=== PATIENT | female | born 2000 | race Two or more races ===

== ENCOUNTER 2023-03-21 11:57 | Emergency (ER) | payer OTHER ==
[2023-03-21 12:21] LABS: BASOPHILS % (AUTO) 0.3 %; EOSINOPHILS % (AUTO) 0.1 %; HCT - HEMATOCRIT 38.2 % (37.0-47.0); HGB - HEMOGLOBIN 12.6 g/dL (12.0-16.0); LYMPHOCYTES # (AUTO) 1.6 10^3/uL (1.5-3.5); LYMPHOCYTES % (AUTO) 13.7 %; MEAN CORPUSCULAR HEMOGLOBIN 28.7 pg (27.0-31.0); MONOCYTES # (AUTO) 0.9 10^3/uL (0.0-1.0); MONOCYTES % (AUTO) 7.6 %; NEUTROPHILS # (AUTO) 9.1 10^3/uL (1.5-6.6); PLT - PLATELET COUNT 427 10^3/uL (130-450); RED BLOOD COUNT 4.39 10^6/uL (4.20-5.40); RED CELL DISTRIBUTION WIDTH 13.1 % (12.0-15.0); WHITE BLOOD COUNT 11.6 x10^3/uL (4.8-10.8)
[2023-03-21 12:34] LABS: ALBUMIN/GLOBULIN RATIO 0.9 (1.0-2.2); CALCIUM 9.1 mg/dL (8.5-10.3); CREATININE 0.7 mg/dL (0.4-1.0); POTASSIUM 3.9 mmol/L (3.5-5.0); TOTAL PROTEIN 8.7 g/dL (6.7-8.2)
[2023-03-21] MEDS ORDERED: ONDANSETRON 4 MG/2 ML VIAL IVP STA (15:19)
[2023-03-21] MEDS ORDERED: SODIUM CHLORIDE 0.9% 1,000 ML IV STA (15:19)
--- NOTE | 2023-03-21 15:27 | ED Physician Documentation ---
PD HPI ABD PAIN - Stated complaint Stated Complaint: NAUSEA/ABD PX - Chief complaint Chief Complaint: Abd Pain - History obtained from History obtained from: Patient - Additional information Additional information: Patient is a 22-year-old female presenting for evaluation of abdominal pain with associated nausea and vomiting starting yesterday. Patient reports having multiple episodes of emesis yesterday consisting of liquids. No blood.She reported a fever of 102 last night. She woke up this morning still feeling nauseous with her last episode of emesis around 10:00 this morning. She reports pain in the abdomen. She did have some vaginal bleeding yesterday But it stopped today. No discharge or concerns for STI. Patient is unsure if she is . She does use the NuvaRing and removed it on Monday and this would be the normal time for her period.Denies prior abdominal surgeries. No sick contacts. Review of Systems Constitutional: reports: Fever Cardiac: denies: Chest pain / pressure Respiratory: denies: Dyspnea GI: reports: Abdominal Pain, Nausea, Vomiting : reports: Vaginal bleeding. denies: Dysuria, Hematuria Neurologic: denies: Headache PD PAST MEDICAL HISTORY - Present Medications Home Medications: Ambulatory Orders Medication Instructions Recorded Confirmed Cefpodoxime Proxetil [Vantin] 100 mg PO Q12H 10 Days #20 tablet 03/21/23 Ondansetron Odt [Zofran] 4 mg TL Q6H PRN #10 tablet 03/21/23 - Allergies Allergies/Adverse Reactions: Allergies Allergy/AdvReac Type Severity Reaction Status Date / Time No Known Drug Allergies Allergy Verified 03/21/23 12:05 PD ED PE NORMAL - General General: Alert and oriented X 3, No acute distress, Well developed/nourished - HEENT HEENT: Atraumatic - Neck Neck: Supple, no meningeal sign - Cardiac Cardiac: RRR, No murmur - Respiratory Respiratory: No respiratory distress, Clear bilaterally - Abdomen Abdomen: Normal bowel sounds, Soft, Non distended, Other (Right-sided abdominal tenderness to palpation) - Back Back: Other (R CVA tenderness) - Derm Derm: Warm and dry - Neuro Neuro: Normal speech Results - Vitals Vitals: Vital Signs - 24 hr 03/21/23 03/21/23 03/21/23 12:05 15:23 16:15 Temperature 36.5 C Heart Rate 100 97 90 Respiratory 16 16 16 Rate Blood Pressure 138/77 H 135/77 H 135/76 H O2 Saturation 99 100 100 03/21/23 17:43 Temperature 36.7 C Heart Rate 89 Respiratory 21 Rate Blood Pressure 124/76 O2 Saturation 99 Oxygen O2 Source Room air - Labs Labs: Laboratory Tests 03/21/23 03/21/23 03/21/23 12:15 12:15 15:26 WBC 11.6 H RBC 4.39 Hgb 12.6 Hct 38.2 MCV 87.0 MCH 28.7 MCHC 33.0 RDW 13.1 Plt Count 427 MPV 10.0 Neut # (Auto) 9.1 H Lymph # (Auto) 1.6 [place] # (Auto) 0.9 Eos # (Auto) 0.0 Baso # (Auto) 0.0 Absolute Nucleated RBC 0.00 Nucleated RBC % 0.0 Sodium 137 Potassium 3.9 Chloride 103 Carbon Dioxide 26 Anion Gap 8.0 BUN 10 Creatinine 0.7 Estimated GFR (MDRD) 107 Glucose 100 Calcium 9.1 Total Bilirubin 1.0 AST 19 ALT 15 Alkaline Phosphatase 68 Total Protein 8.7 H Albumin 4.0 Globulin 4.7 H Albumin/Globulin Ratio 0.9 L Lipase 35 Urine Color YELLOW Urine Clarity CLOUDY Urine pH 6.5 Ur Specific [place] 1.020 Urine Protein 30 H Urine Glucose (UA) NEGATIVE Urine Ketones NEGATIVE Urine Occult Blood MODERATE H Urine Nitrite POSITIVE H Urine Bilirubin NEGATIVE Urine Urobilinogen 1 (NORMAL) Ur Leukocyte Esterase LARGE H Urine RBC 11-25 H Urine WBC >25 H Urine WBC Clumps PRESENT Ur Squamous Epith Cells RARE Squamous Urine Bacteria Many H Ur Microscopic Review INDICATED Urine Culture Comments INDICATED Urine HCG, Qual NEGATIVE PD Medical Decision Making - ED course Complexity details: reviewed results, re-evaluated patient, d/w patient ED course: Pt with abdominal pains, vomiting, fever. VSS. Mild tenderness noted on abdominal exam but no peritoneal signs. Labs reviewed. WBC 11.6 and U/A concerning for infection. CT obtained given abdominal tenderness which I reviewed. R sided pyelonephritis. Pt given IV rocephin. She is feeling better here with zofran and tolerating PO. Does not appear septic and appears appropriate for trial of outpatient treatment. Pt counseled on treatment course and strict return precautions for any worsening symptoms. Departure - Departure Disposition: 01 Home, Self Care Clinical Impression: Pyelonephritis Instructions: ED Kidney Infec Female Follow-Up: [facility] [Provider Group] Prescriptions: Cefpodoxime Proxetil [Vantin] 100 mg PO Q12H 10 Days #20 tablet Ondansetron Odt [Zofran] 4 mg TL Q6H PRN #10 tablet PRN Reason: Nausea / Vomiting Comments: Your testing today shows that you have an infection that is spread to your right kidney. We have given you a dose of an IV antibiotic. I also sent a prescription for an oral antibiotic as well as an antinausea medication to [facility] in [place]. Please make sure to complete the course of the antibiotic. It is important to stay hydrated. If you develop any worsening symptoms such as trouble taking your antibiotic, continued fevers, worsening pain or any new concerns please return to the emergency department. Forms: Activity restrictions Discharge Date/Time: 03/21/23 17:43
[2023-03-21 15:37] LABS: BILIRUBIN,URINE NEGATIVE (NEGATIVE); GLUCOSE, URINE (UA) NEGATIVE (NEGATIVE); KETONES,URINE (UA) NEGATIVE (NEGATIVE); LEUKOCYTE ESTERASE, URINE LARGE (NEGATIVE); NITRITE,URINE POSITIVE (NEGATIVE); OCCULT BLOOD,URINE MODERATE (NEGATIVE); PH,URINE 6.5 PH (5.0-7.5); PROTEIN,URINE 30 mg/dL (NEGATIVE); UROBILINOGEN,URINE 1 (NORMAL) E.U./dL (NORMAL)
[2023-03-21 15:45] LABS: CLARITY,URINE CLOUDY (CLEAR)
[2023-03-21 15:46] LABS: HCG UR QUAL NEGATIVE
[2023-03-21 15:47] LABS: BACTERIA,URINE Many /HPF (None Seen); SQUAMOUS EPITHELIAL CELL,UR RARE Squamous (<= Few); WBC CLUMPS,URINE PRESENT; WBC,URINE >25 /HPF (0-5)
[2023-03-21] MEDS ORDERED: cefTRIAXone 1 GM VIAL IVP STA (15:53)
[2023-03-21] MEDS ORDERED: cefTRIAXone 1 GM in SODIUM CHLORIDE 0.9% MINIBAG 100 ML IV STA (15:59)
[2023-03-21] MEDS ORDERED: iohexoL-300 100 ML VIAL ONE (16:00)
[2023-03-21] MEDS ORDERED: cefTRIAXone 1 GM VIAL ONE (16:11)
[2023-03-21] MEDS ORDERED: iohexoL-300 100 ML VIAL IVP ONE (16:43)
--- NOTE | 2023-03-21 17:07 | CT Report ---
PROCEDURE: ABDOMEN/PELVIS W INDICATIONS: abd pain/vomiting CONTRAST: 100mL Omni 300 TECHNIQUE: After the administration of intravenous contrast, 5 mm thick sections acquired from the diaphragms to the symphysis. 5 mm thick coronal and sagittal reformats were acquired. For radiation dose reducti on, the following was used: automated exposure control, adjustment of mA and/or kV according to jose ent size. COMPARISON: None FINDINGS: Image quality: Excellent. Lung bases and heart: Unremarkable. Liver: No solid mass. Gallbladder and biliary tree: No radiopaque stones or wall thickening. No biliary dilation. Spleen: No splenomegaly. Pancreas: No pancreatic ductal dilation. Adrenals: No adrenal nodule. Kidneys and ureters: There is mild right-sided hydronephrosis, with urothelial wall thickening. Symme tric enhancement phase of the kidneys, with patchy, wedge-shaped hypoattenuation of the right renal c ortex. No abscess. Nonobstructing right-sided stones measuring less than 4 mm. Bowel and peritoneum: No bowel distension. No pathologic free fluid. Lymph nodes: No central or retroperitoneal adenopathy. Vessels: No infrarenal aortic aneurysm. PELVIS Reproductive organs: Unremarkable. Bladder: No abnormal wall thickening, accounting for underdistension. Pelvic lymph nodes: No pelvic adenopathy by size criteria. Bones: No aggressive osseous abnormality. Other: No significant ventral or inguinal hernia. IMPRESSION: Right-sided pyelonephritis, with associated mild hydronephrosis, likely related to bacteriostatic enz ymes. No abscess. A pair of sub-4 mm nonobstructing right-sided nephrolithiasis. Reviewed by: Peter Erwin on 03/21/2023 5:05 PM PDT Approved by: Peter Erwin on 03/21/2023 5:05 PM PDT Station ID: [id number]
[2023-03-21 17:46] VITALS: BP 124/76
--- NOTE | 2023-03-22 11:18 | ED Physician Documentation ---
ED Addendum - Addendum Addendum: 03/22/23 11:17 I was asked by our [employer] to electronically prescribe the Vantin and Zofran that had been prescribed by the previous provider which appears to not have been electronically sent. These were sent to the [facility] in [place].
== END 2023-03-21 17:43 | disposition home or self-care (01) ==
LOC: ED 11:57
DX: N12 Tubulo-interstitial nephritis, not specified as acute or chronic (principal)
CPT/HCPCS: 36415; 74177; 80053; 81001; 81025; 83690; 85025; 87077; 87086; 87181; 96365; 96375; 99284; Q9967; 81003

== ENCOUNTER 2023-05-03 14:12 | Emergency (ER) | payer OTHER ==
[2023-05-03 14:38] LABS: BASOPHILS % (AUTO) 0.6 %; EOSINOPHILS # (AUTO) 0.2 10^3/uL (0.0-0.7); EOSINOPHILS % (AUTO) 4.6 %; HCT - HEMATOCRIT 35.2 % (37.0-47.0); HGB - HEMOGLOBIN 11.5 g/dL (12.0-16.0); LYMPHOCYTES # (AUTO) 1.4 10^3/uL (1.5-3.5); LYMPHOCYTES % (AUTO) 27.6 %; MEAN CORPUSCULAR HEMOGLOBIN 28.5 pg (27.0-31.0); MEAN CORPUSCULAR HGB CONC 32.7 g/dL (32.0-36.0); MEAN CORPUSCULAR VOLUME 87.3 fL (81.0-99.0); MEAN PLATELET VOLUME 10.2 fL (7.9-10.8); MONOCYTES # (AUTO) 0.4 10^3/uL (0.0-1.0); MONOCYTES % (AUTO) 7.2 %; NEUTROPHILS % (AUTO) 59.8 %; PLT - PLATELET COUNT 377 10^3/uL (130-450); RED BLOOD COUNT 4.03 10^6/uL (4.20-5.40); RED CELL DISTRIBUTION WIDTH 13.2 % (12.0-15.0)
--- NOTE | 2023-05-03 14:50 | ED Physician Documentation ---
PD HPI ABD PAIN - Stated complaint Stated Complaint: RT SIDE PX - Chief complaint Chief Complaint: Abd Pain - History obtained from History obtained from: Patient - History of Present Illness Timing - onset: How many days ago (5) Timing - duration: Days (5) Timing - details: Gradual onset Pain level max: 5 Pain level now: 5 Quality: Aching, Pain Location: Other (R flank) Associated symptoms: Nausea. No: Fever, Vomiting, Hematemesis, Diarrhea, Constipation, Melena, Hematochezia, Dysuria, Hematuria, Chest pain, Dizzy Recently seen: Not recently seen - Additional information Additional information: Patient is a 22-year-old female who presents to the emergency department for right flank pain. Recently treated for nephrolithiasis and pyelonephritis. She states she felt better after antibiotics but now the pain is returning. Does not have any urinary symptoms. No fevers. No chills. Nothing really makes it better or worse. No vaginal bleeding or discharge. Denies any possibility of . Review of Systems Constitutional: denies: Fever, Chills GI: denies: Vomiting PD PAST MEDICAL HISTORY - Past Medical History Cardiovascular: None Respiratory: None Neuro: None Endocrine/Autoimmune: None GI: None QUALITY COMPLIANCE CONSULTANT: None : None HEENT: None Psych: None Musculoskeletal: None Derm: None - Past Surgical History Past Surgical History: No - Present Medications Home Medications: Ambulatory Orders Medication Instructions Recorded Confirmed Cefpodoxime Proxetil [Vantin] 100 mg PO Q12H 10 Days #20 tablet 03/21/23 Ondansetron Odt [Zofran] 4 mg TL Q6H PRN #10 tablet 03/21/23 Cefpodoxime Proxetil [Vantin] 100 mg PO Q12H #14 tablet 05/03/23 HYDROcod/ACETAM 5/325 [[place] 5/325] 1 - 2 ea PO Q6H PRN #14 tablet 05/03/23 - Allergies Allergies/Adverse Reactions: Allergies Allergy/AdvReac Type Severity Reaction Status Date / Time No Known Drug Allergies Allergy Verified 03/21/23 12:05 - Social History Does the pt smoke?: No Smoking Status: Never smoker Does the pt drink ETOH?: No Does the pt have substance abuse?: No - Immunizations Immunizations are current?: Yes PD ED PE NORMAL - Vitals Vital signs reviewed: Yes - General General: Alert and oriented X 3, No acute distress - HEENT HEENT: PERRL - Cardiac Cardiac: RRR, No murmur - Respiratory Respiratory: Clear bilaterally - Abdomen Abdomen: Soft, Non tender, Non distended - Back Back: Other (mild R CVAT) - Derm Derm: Warm and dry, No rash - Extremities Extremities: No edema - Neuro Neuro: Alert and oriented X 3 - Psych Psych: Normal mood, Normal affect Results - Vitals Vitals: Vital Signs - 24 hr 05/03/23 05/03/23 14:15 17:57 Temperature 37.4 C Heart Rate 84 71 Respiratory 18 16 Rate Blood Pressure 116/61 121/76 O2 Saturation 97 100 Oxygen O2 Source Room air - Labs Labs: Laboratory Tests 05/03/23 05/03/23 05/03/23 14:33 14:33 14:53 WBC 5.0 RBC 4.03 L Hgb 11.5 L Hct 35.2 L MCV 87.3 MCH 28.5 MCHC 32.7 RDW 13.2 Plt Count 377 MPV 10.2 Neut # (Auto) 3.0 Lymph # (Auto) 1.4 L [place] # (Auto) 0.4 Eos # (Auto) 0.2 Baso # (Auto) 0.0 Absolute Nucleated RBC 0.00 Nucleated RBC % 0.0 Sodium 136 Potassium 3.6 Chloride 104 Carbon Dioxide 28 Anion Gap 4.0 L BUN 19 Creatinine 0.7 Estimated GFR (MDRD) 107 Glucose 113 H Calcium 9.5 Total Bilirubin 0.3 AST 13 ALT 10 Alkaline Phosphatase 72 Total Protein 7.6 Albumin 4.0 Globulin 3.6 Albumin/Globulin Ratio 1.1 Lipase 45 Urine Color YELLOW Urine Clarity CLOUDY Urine pH 8.0 H Ur Specific [place] 1.015 Urine Protein NEGATIVE Urine Glucose (UA) NEGATIVE Urine Ketones NEGATIVE Urine Occult Blood NEGATIVE Urine Nitrite NEGATIVE Urine Bilirubin NEGATIVE Urine Urobilinogen 0.2 (NORMAL) Ur Leukocyte Esterase TRACE H Urine RBC 0-5 Urine WBC 11-25 H Ur Squamous Epith Cells FEW Squamous Amorphous Sediment Marked Urine Bacteria Few Ur Microscopic Review INDICATED Urine Culture Comments INDICATED Urine HCG, Qual NEGATIVE - Rads (name of study) CT abd pelvis Relevant Findings:: Final report received, See rad report PD Medical Decision Making - ED course Complexity details: reviewed results, re-evaluated patient, considered differential, d/w patient ED course: No fever. No leukocytosis. No evidence of sepsis. Does have white blood cells and bacteria in her urine, given Rocephin and will place on antibiotics for this. Her CT scan shows probable obstruction at the UPJ. No visible stone. This appears worse than her CT scan a month ago. I discussed the case with Dr. Donahue, urology who recommends follow-up in clinic. [place]. Patient is well-appearing, nontoxic. Afebrile. Will prescribe pain medication for home. Patient counseled regarding signs and symptoms for which I believe and urgent re-evaluation would be necessary. Patient with good understanding of and agreement to plan and is comfortable going home at this time This document was made in part using voice recognition software. While efforts are made to proofread this document, sound alike and grammatical errors may occur. Departure - Departure Disposition: Home, Self Care Clinical Impression: UPJ (ureteropelvic junction) obstruction UTI (urinary tract infection) Qualifiers: Urinary tract infection type: acute cystitis Hematuria presence: without hematuria Qualified Code(s): N30.00 - Acute cystitis without hematuria Condition: Good Instructions: ED UTI Cystitis Female [facility] Perfecto Donahue MD [Provider Admit Priv/Credential] - Within 1 week Prescriptions: HYDROcod/ACETAM 5/325 [[place] 5/325] 1 - 2 ea PO Q6H PRN #14 tablet PRN Reason: Pain Cefpodoxime Proxetil [Vantin] 100 mg PO Q12H #14 tablet Comments: Your prescription was sent to [facility] in [place]. You can use them occasion as needed for pain. Please take all antibiotics until gone. As we discussed is important that you follow-up with urology for further evaluation of the right UPJ obstruction. I did speak with Dr. Godfrey callahan. I am prescribing a short course of narcotic pain medication for you. These are potentially dangerous and addictive medications that should be used carefully. These medications may constipate you. Take an jgpo-cax-cqqsfui stool softener (docusate) twice daily with plenty of water while taking these medications. If you go 24 hours without a bowel movement, take simi-nja-[id number] miralax, per package instructions. Do not drink or drive while taking these medications. If you received narcotic or sedating medications while in the emergency department, do not drive for 24 hours. Store this medication in a safe, secure place and out of reach of children. It is a violation of federal law to give or sell this medication to another person or to use in a manner other than prescribed. The ED will not refill narcotic prescriptions, including prescriptions lost or stolen. To dispose of unwanted medications: 1. [facility] at [address] in [place] has a medication drop box. They accept prescription medications (in pill form) Monday through Monday 9:00 a.m. to 5:00 p.m. 2. The [facility] accepts prescription medications (in pill form only) for disposal year round. Call for more information. 3. Contact the [facility] for the next [facility] sponsored prescription drug collection event. , [phone], or [phone]; EXAM: [id number] CT/ABPEW ([id number]) PROCEDURE: ABDOMEN/PELVIS W INDICATIONS: R flank pain CONTRAST: 100mL Omni 300 TECHNIQUE: After the administration of intravenous contrast, 5 mm thick sections acquired from the diaphragms to the symphysis. 5 mm thick coronal and sagittal reformats were acquired. For radiation dose reduction, the following was used: automated exposure control, adjustment of mA and/or kV according to patient size. COMPARISON: 03/21/2023 FINDINGS: Image quality: Excellent. Lung bases and heart: Unremarkable. Liver: No solid mass. Gallbladder and biliary tree: No radiopaque stones or wall thickening. No biliary dilation. Spleen: No splenomegaly. Pancreas: No pancreatic ductal dilation. Adrenals: No adrenal nodule. Kidneys and ureters: Slight interval increase in right hydronephrosis. There is a right extrarenal pelvis and probable right UPJ obstruction. There is moderate right hydronephrosis currently. The previous heterogeneous enhancement of the right kidney is improved. Bowel and peritoneum: No bowel distension. No pathologic free fluid. Lymph nodes: No central or retroperitoneal adenopathy. Vessels: No infrarenal aortic aneurysm. PELVIS Reproductive organs: Unremarkable. Bladder: No abnormal wall thickening, accounting for underdistension. Pelvic lymph nodes: No pelvic adenopathy by size criteria. Bones: No aggressive osseous abnormality. Other: No significant ventral or inguinal hernia. IMPRESSION: Interval progression of right hydronephrosis, now moderate. There is a right extrarenal pelvis. There is a probable right UPJ obstruction. Forms: PCP List Discharge Date/Time: 05/03/23 17:58
[2023-05-03 14:58] LABS: ALBUMIN/GLOBULIN RATIO 1.1 (1.0-2.2); BILIRUBIN,TOTAL 0.3 mg/dL (0.2-1.0); CALCIUM 9.5 mg/dL (8.5-10.3); CREATININE 0.7 mg/dL (0.6-1.3); POTASSIUM 3.6 mmol/L (3.5-4.5); TOTAL PROTEIN 7.6 g/dL (6.4-8.9)
[2023-05-03 15:08] LABS: BILIRUBIN,URINE NEGATIVE (NEGATIVE); GLUCOSE, URINE (UA) NEGATIVE (NEGATIVE); KETONES,URINE (UA) NEGATIVE (NEGATIVE); LEUKOCYTE ESTERASE, URINE TRACE (NEGATIVE); NITRITE,URINE NEGATIVE (NEGATIVE); OCCULT BLOOD,URINE NEGATIVE (NEGATIVE); PROTEIN,URINE NEGATIVE (NEGATIVE); UROBILINOGEN,URINE 0.2 (NORMAL) E.U./dL (NORMAL)
[2023-05-03 15:12] LABS: CLARITY,URINE CLOUDY (CLEAR); HCG UR QUAL NEGATIVE
[2023-05-03 15:37] LABS: AMORPHOUS SEDIMENT,UR Marked /LPF; BACTERIA,URINE Few /HPF (None Seen); RBC,URINE 0-5 /HPF (0-5); SQUAMOUS EPITHELIAL CELL,UR FEW Squamous (<= Few)
[2023-05-03] MEDS: iohexoL-300 100 ML VIAL IVP ONE (16:12)
--- NOTE | 2023-05-03 17:20 | CT Report ---
PROCEDURE: ABDOMEN/PELVIS W INDICATIONS: R flank pain CONTRAST: 100mL Omni 300 TECHNIQUE: After the administration of intravenous contrast, 5 mm thick sections acquired from the diaphragms to the symphysis. 5 mm thick coronal and sagittal reformats were acquired. For radiation dose reducti on, the following was used: automated exposure control, adjustment of mA and/or kV according to jose ent size. COMPARISON: 03/21/2023 FINDINGS: Image quality: Excellent. Lung bases and heart: Unremarkable. Liver: No solid mass. Gallbladder and biliary tree: No radiopaque stones or wall thickening. No biliary dilation. Spleen: No splenomegaly. Pancreas: No pancreatic ductal dilation. Adrenals: No adrenal nodule. Kidneys and ureters: Slight interval increase in right hydronephrosis. There is a right extrarenal pe lvis and probable right UPJ obstruction. There is moderate right hydronephrosis currently. The previo us heterogeneous enhancement of the right kidney is improved. Bowel and peritoneum: No bowel distension. No pathologic free fluid. Lymph nodes: No central or retroperitoneal adenopathy. Vessels: No infrarenal aortic aneurysm. PELVIS Reproductive organs: Unremarkable. Bladder: No abnormal wall thickening, accounting for underdistension. Pelvic lymph nodes: No pelvic adenopathy by size criteria. Bones: No aggressive osseous abnormality. Other: No significant ventral or inguinal hernia. IMPRESSION: Interval progression of right hydronephrosis, now moderate. There is a right extrarenal pelvis. There is a probable right UPJ obstruction. Reviewed by: Ashok Pebmerton MD on 05/03/2023 5:19 PM PDT Approved by: Ashok Pemberton MD on 05/03/2023 5:19 PM PDT Station ID: [id number]
[2023-05-03] MEDS: cefTRIAXone 1 GM VIAL IVP STA (17:38)
[2023-05-03 18:03] VITALS: BP 121/76; O2SAT 100
--- NOTE | 2023-05-05 11:28 | ED Physician Documentation ---
ED Addendum - Addendum Addendum: 05/05/23 11:28 CX reviewed, orlando gambino
== END 2023-05-03 17:58 | disposition home or self-care (01) ==
LOC: ED 14:12
DX: N13.1 Hydronephrosis with ureteral stricture, not elsewhere classified (principal); N30.00 Acute cystitis without hematuria
CPT/HCPCS: 36415; 80053; 81001; 81003; 81025; 83690; 85025; 87086; 87181; 96374; 99283

== ENCOUNTER 2023-05-10 08:00 | Outpatient (CLI) | payer OTHER ==
[2023-05-10 16:38] LABS: BILIRUBIN,URINE NEGATIVE (NEGATIVE); GLUCOSE, URINE (UA) NEGATIVE (NEGATIVE); KETONES,URINE (UA) NEGATIVE (NEGATIVE); LEUKOCYTE ESTERASE, URINE NEGATIVE (NEGATIVE); NITRITE,URINE NEGATIVE (NEGATIVE); OCCULT BLOOD,URINE NEGATIVE (NEGATIVE); PROTEIN,URINE NEGATIVE (NEGATIVE); UROBILINOGEN,URINE 0.2 (NORMAL) E.U./dL (NORMAL)
[2023-05-10 16:46] LABS: CLARITY,URINE CLEAR (CLEAR)
[2023-05-10 17:02] LABS: BACTERIA,URINE None Seen /HPF (None Seen); RBC,URINE None Seen /HPF (0-5); SQUAMOUS EPITHELIAL CELL,UR FEW Squamous (<= Few); WBC,URINE 0-3 /HPF (0-5)
== END 2023-05-10 23:59 | disposition home or self-care (01) ==
LOC: LAB 08:00
PROVIDERS: ATTEND Urology
DX: N39.0 Urinary tract infection, site not specified (principal)
CPT/HCPCS: 81001; 87086

== ENCOUNTER 2023-08-08 09:45 | Emergency (ER) | payer OTHER ==
[2023-08-08] MEDS ORDERED: SODIUM CHLORIDE 0.9% 1,000 ML IV STA (10:10)
[2023-08-08] MEDS ORDERED: ONDANSETRON 4 MG/2 ML VIAL IVP STA (10:10)
[2023-08-08 10:21] LABS: BASOPHILS % (AUTO) 0.2 %; EOSINOPHILS # (AUTO) 0.1 10^3/uL (0.0-0.7); EOSINOPHILS % (AUTO) 1.7 %; HCT - HEMATOCRIT 35.8 % (37.0-47.0); HGB - HEMOGLOBIN 11.9 g/dL (12.0-16.0); LYMPHOCYTES # (AUTO) 1.4 10^3/uL (1.5-3.5); LYMPHOCYTES % (AUTO) 17.4 %; MEAN CORPUSCULAR HEMOGLOBIN 28.7 pg (27.0-31.0); MEAN CORPUSCULAR HGB CONC 33.2 g/dL (32.0-36.0); MEAN CORPUSCULAR VOLUME 86.5 fL (81.0-99.0); MEAN PLATELET VOLUME 9.9 fL (7.9-10.8); MONOCYTES # (AUTO) 0.4 10^3/uL (0.0-1.0); MONOCYTES % (AUTO) 4.5 %; NEUTROPHILS # (AUTO) 6.2 10^3/uL (1.5-6.6); PLT - PLATELET COUNT 422 10^3/uL (130-450); RED BLOOD COUNT 4.14 10^6/uL (4.20-5.40); WHITE BLOOD COUNT 8.2 x10^3/uL (4.8-10.8)
[2023-08-08 10:36] LABS: ALBUMIN 4.1 g/dL (3.2-5.5); ALBUMIN/GLOBULIN RATIO 1.2 (1.0-2.2); BILIRUBIN,TOTAL 0.2 mg/dL (0.2-1.0); CALCIUM 9.3 mg/dL (8.5-10.3); CREATININE 0.6 mg/dL (0.6-1.3); POTASSIUM 3.3 mmol/L (3.5-4.5); TOTAL PROTEIN 7.5 g/dL (6.4-8.9)
[2023-08-08] MEDS ORDERED: HYDROmorphone 0.5 MG/0.5 ML SYRINGE IVP STA (11:02)
[2023-08-08] MEDS ORDERED: KETOROLAC 15 MG/ML VIAL IVP STA (11:02)
[2023-08-08 11:13] LABS: BILIRUBIN,URINE NEGATIVE (NEGATIVE); GLUCOSE, URINE (UA) NEGATIVE (NEGATIVE); KETONES,URINE (UA) NEGATIVE (NEGATIVE); LEUKOCYTE ESTERASE, URINE LARGE (NEGATIVE); NITRITE,URINE POSITIVE (NEGATIVE); OCCULT BLOOD,URINE SMALL (NEGATIVE); PH,URINE 6.5 PH (5.0-7.5); PROTEIN,URINE 30 mg/dL (NEGATIVE); UROBILINOGEN,URINE 0.2 (NORMAL) E.U./dL (NORMAL)
[2023-08-08 11:17] LABS: HCG UR QUAL NEGATIVE
[2023-08-08 11:21] LABS: CLARITY,URINE HAZY (CLEAR)
[2023-08-08 11:29] LABS: BACTERIA,URINE Many /HPF (None Seen); SQUAMOUS EPITHELIAL CELL,UR FEW Squamous (<= Few); WBC CLUMPS,URINE PRESENT; WBC,URINE >25 /HPF (0-5)
[2023-08-08] MEDS ORDERED: levoFLOXacin 250 MG TABLET PO STA (11:37)
--- NOTE | 2023-08-08 13:56 | ED Physician Documentation ---
History of Present Illness - Stated complaint Stated Complaint: N/V,[place]O,RT LBP - Chief complaint Chief Complaint: General - History obtained from History obtained from: Patient - Additonal information Additional information: The pt comes to the ED with CC of R flank pain. She has had sx on and off for the past several weeks, and is scheduled for a procedure to dilate her L ureter after being found to have UPJ stenosis. The pt denies fever, chills, or dysuria. No N/V. Pain is moderate right now. PD PAST MEDICAL HISTORY - Past Medical History Cardiovascular: None Respiratory: None Neuro: None Endocrine/Autoimmune: None GI: None BINDER STRIPPER MACHINE: None : None HEENT: None Psych: None Musculoskeletal: None Derm: None - Past Surgical History Past Surgical History: No - Present Medications Home Medications: Ambulatory Orders Medication Instructions Recorded Confirmed HYDROcod/ACETAM 5/325 [[place] 5/325] 1 - 2 ea PO Q6H PRN #14 tablet 05/03/23 08/08/23 Ondansetron Odt [Zofran] 4 mg TL Q6H PRN #10 tablet 08/08/23 levoFLOXacin [Levaquin] 500 mg PO QD #20 tablet 08/08/23 - Allergies Allergies/Adverse Reactions: Allergies Allergy/AdvReac Type Severity Reaction Status Date / Time No Known Drug Allergies Allergy Verified 08/08/23 10:03 - Social History Does the pt smoke?: No Smoking Status: Never smoker Does the pt drink ETOH?: No Does the pt have substance abuse?: No - Immunizations Immunizations are current?: Yes - POLST Patient has POLST: No PD ED PE NORMAL - Vitals Vital signs reviewed: Yes - General General: Alert and oriented X 3, No acute distress - HEENT HEENT: Atraumatic, PERRL, EOMI, Moist mucous membranes - Neck Neck: Supple, no meningeal sign - Cardiac Cardiac: RRR, No murmur - Respiratory Respiratory: No respiratory distress, Clear bilaterally - Abdomen Abdomen: Soft, Non distended, Other (Mild tenderness R flank, no rebound or guarding.) - Derm Derm: Warm and dry - Extremities Extremities: No deformity - Neuro Neuro: Alert and oriented X 3 - Psych Psych: Normal mood, Normal affect Results - Vitals Vitals: Oxygen O2 Source Room air - Labs Labs: Microbiology 08/08/23 11:05 Urine Culture - Final Urine,Random Escherichia Coli Laboratory Tests 08/08/23 08/08/23 08/08/23 10:16 10:16 11:05 WBC 8.2 RBC 4.14 L Hgb 11.9 L Hct 35.8 L MCV 86.5 MCH 28.7 MCHC 33.2 RDW 13.0 Plt Count 422 MPV 9.9 Neut # (Auto) 6.2 Lymph # (Auto) 1.4 L [place] # (Auto) 0.4 Eos # (Auto) 0.1 Baso # (Auto) 0.0 Absolute Nucleated RBC 0.00 Nucleated RBC % 0.0 Sodium 139 Potassium 3.3 L Chloride 105 Carbon Dioxide 27 Anion Gap 7.0 BUN 13 Creatinine 0.6 Estimated GFR (MDRD) 127 Glucose 110 H Calcium 9.3 Total Bilirubin 0.2 AST 14 ALT 16 Alkaline Phosphatase 75 Total Protein 7.5 Albumin 4.1 Globulin 3.4 Albumin/Globulin Ratio 1.2 Lipase 42 Urine Color YELLOW Urine Clarity HAZY Urine pH 6.5 Ur Specific [place] 1.015 Urine Protein 30 H Urine Glucose (UA) NEGATIVE Urine Ketones NEGATIVE Urine Occult Blood SMALL H Urine Nitrite POSITIVE H Urine Bilirubin NEGATIVE Urine Urobilinogen 0.2 (NORMAL) Ur Leukocyte Esterase LARGE H Urine RBC 6-10 H Urine WBC >25 H Urine WBC Clumps PRESENT Ur Squamous Epith Cells FEW Squamous Urine Bacteria Many H Ur Microscopic Review INDICATED Urine Culture Comments INDICATED Urine HCG, Qual NEGATIVE PD Medical Decision Making - ED course Complexity details: reviewed old records, reviewed results, re-evaluated patient, considered differential, d/w patient ED course: The pt was treated symptomatically and worked up with labs and urinalysis. The pt was afebrile and hemodynamically stable. WBC count was normal, as was renal function. The pt's urinalysis was indicative of infection. I started her on antibiotics here, and have sent prescription for the same. We have discussed the need for follow up with urology, and the usual indications for return. Departure - Departure Disposition: 01 Home, Self Care Clinical Impression: UTI (urinary tract infection) Qualifiers: Urinary tract infection type: acute cystitis Hematuria presence: without hematuria Qualified Code(s): N30.00 - Acute cystitis without hematuria Condition: Stable Instructions: ED UTI Cystitis Female Prescriptions: levoFLOXacin [Levaquin] 500 mg PO QD #20 tablet Ondansetron Odt [Zofran] 4 mg TL Q6H PRN #10 tablet PRN Reason: Nausea / Vomiting Comments: You have a urinary tract infection but your blood work looks good. Your prescription for antibiotics has been electronically transmitted to the [facility] pharmacy in [place]. A prescription for nausea medication has also been sent. You have been given your first dose of antibiotics here in the emergency department, but should pick the meds up today so that you can take your next dose tomorrow. Please be sure to drink plenty of water to keep your kidneys flushed out. If you begin to feel as though you are getting worse, or you begin spiking fevers, please return to the emergency department for reevaluation. Otherwise, please complete your course of antibiotics and plan to follow-up as planned for your surgery. Forms: PCP List Discharge Date/Time: 08/08/23 14:10
[2023-08-08 14:18] VITALS: BP 123/79; O2SAT 99
== END 2023-08-08 14:10 | disposition home or self-care (01) ==
LOC: ED 09:45
DX: N30.00 Acute cystitis without hematuria (principal); B96.20 Unspecified Escherichia coli [E. coli] as the cause of diseases classified elsewhere
CPT/HCPCS: 36415; 80053; 81001; 81025; 83690; 85025; 87086; 87181; 96374; 96375; 99283; A9270; J1170; 81003

== ENCOUNTER 2023-09-01 12:44 | Outpatient (CLI) | payer OTHER ==
[2023-09-01 18:09] LABS: BILIRUBIN,URINE NEGATIVE (NEGATIVE); GLUCOSE, URINE (UA) NEGATIVE (NEGATIVE); KETONES,URINE (UA) NEGATIVE (NEGATIVE); LEUKOCYTE ESTERASE, URINE NEGATIVE (NEGATIVE); NITRITE,URINE NEGATIVE (NEGATIVE); OCCULT BLOOD,URINE TRACE-INTA (NEGATIVE); PROTEIN,URINE NEGATIVE (NEGATIVE); UROBILINOGEN,URINE 0.2 (NORMAL) E.U./dL (NORMAL)
[2023-09-01 18:19] LABS: CLARITY,URINE CLEAR (CLEAR)
[2023-09-01 18:39] LABS: BACTERIA,URINE Few /HPF (None Seen); RBC,URINE 0-5 /HPF (0-5); SQUAMOUS EPITHELIAL CELL,UR FEW Squamous (<= Few); WBC,URINE 0-3 /HPF (0-5)
== END 2023-09-01 12:45 | disposition home or self-care (01) ==
LOC: LAB.N 12:44
PROVIDERS: ATTEND Physician Assistant Surgical
DX: N20.0 Calculus of kidney (principal)
CPT/HCPCS: 81001; 87086

== ENCOUNTER 2023-09-23 20:01 | Emergency (ER) | payer OTHER ==
[2023-09-23 21:07] LABS: BILIRUBIN,URINE NEGATIVE (NEGATIVE); GLUCOSE, URINE (UA) NEGATIVE (NEGATIVE); KETONES,URINE (UA) NEGATIVE (NEGATIVE); LEUKOCYTE ESTERASE, URINE TRACE (NEGATIVE); NITRITE,URINE NEGATIVE (NEGATIVE); OCCULT BLOOD,URINE LARGE (NEGATIVE); PROTEIN,URINE 30 mg/dL (NEGATIVE); UROBILINOGEN,URINE 0.2 (NORMAL) E.U./dL (NORMAL)
[2023-09-23 21:19] LABS: CLARITY,URINE CLEAR (CLEAR); HCG UR QUAL NEGATIVE
[2023-09-23 21:51] LABS: BASOPHILS # (AUTO) 0.1 10^3/uL (0.0-0.1); BASOPHILS % (AUTO) 0.6 %; EOSINOPHILS # (AUTO) 0.2 10^3/uL (0.0-0.7); EOSINOPHILS % (AUTO) 2.2 %; HCT - HEMATOCRIT 35.2 % (37.0-47.0); HGB - HEMOGLOBIN 11.3 g/dL (12.0-16.0); LYMPHOCYTES # (AUTO) 2.1 10^3/uL (1.5-3.5); LYMPHOCYTES % (AUTO) 24.3 %; MEAN CORPUSCULAR HEMOGLOBIN 27.8 pg (27.0-31.0); MEAN CORPUSCULAR HGB CONC 32.1 g/dL (32.0-36.0); MEAN CORPUSCULAR VOLUME 86.7 fL (81.0-99.0); MEAN PLATELET VOLUME 10.1 fL (7.9-10.8); MONOCYTES # (AUTO) 0.6 10^3/uL (0.0-1.0); MONOCYTES % (AUTO) 6.7 %; NEUTROPHILS # (AUTO) 5.8 10^3/uL (1.5-6.6); PLT - PLATELET COUNT 422 10^3/uL (130-450); RED BLOOD COUNT 4.06 10^6/uL (4.20-5.40); RED CELL DISTRIBUTION WIDTH 12.9 % (12.0-15.0); WHITE BLOOD COUNT 8.7 x10^3/uL (4.8-10.8)
[2023-09-23 22:06] LABS: ALBUMIN 4.1 g/dL (3.2-5.5); ALBUMIN/GLOBULIN RATIO 1.1 (1.0-2.2); BILIRUBIN,TOTAL 0.3 mg/dL (0.2-1.0); CALCIUM 9.3 mg/dL (8.5-10.3); CREATININE 0.8 mg/dL (0.6-1.3); POTASSIUM 3.8 mmol/L (3.5-4.5); TOTAL PROTEIN 7.7 g/dL (6.4-8.9)
[2023-09-23 22:11] LABS: BACTERIA,URINE Rare /HPF (None Seen); RBC,URINE TNTC /HPF (0-5); SQUAMOUS EPITHELIAL CELL,UR FEW Squamous (<= Few); WBC,URINE 0-3 /HPF (0-5)
--- NOTE | 2023-09-23 22:44 | ED Physician Documentation ---
PD HPI ABD PAIN - Stated complaint Stated Complaint: /BACK PX/VOMIT - Chief complaint Chief Complaint: Abd Pain PD PAST MEDICAL HISTORY - Past Medical History Past Medical History: Yes Cardiovascular: None Respiratory: None Neuro: None Endocrine/Autoimmune: None GI: None BUS MONITOR: None : None HEENT: None Psych: None Musculoskeletal: None Derm: None - Past Surgical History Past Surgical History: Yes - Present Medications Home Medications: Ambulatory Orders Medication Instructions Recorded Confirmed HYDROcod/ACETAM 5/325 [[place] 5/325] 1 - 2 ea PO Q6H PRN #14 tablet 05/03/23 08/08/23 Ondansetron Odt [Zofran] 4 mg TL Q6H PRN #10 tablet 08/08/23 levoFLOXacin [Levaquin] 500 mg PO QD #20 tablet 08/08/23 - Allergies Allergies/Adverse Reactions: Allergies Allergy/AdvReac Type Severity Reaction Status Date / Time No Known Drug Allergies Allergy Verified 09/23/23 20:12 - Social History Does the pt smoke?: No Smoking Status: Never smoker Does the pt drink ETOH?: No Does the pt have substance abuse?: No - Immunizations Immunizations are current?: Yes - POLST Patient has POLST: No Results - Vitals Vitals: Vital Signs - 24 hr 09/23/23 20:12 Temperature 36.5 C Heart Rate 90 Respiratory 16 Rate Blood Pressure 130/90 H O2 Saturation 100 Oxygen O2 Source Room air - Labs Labs: Laboratory Tests 09/23/23 09/23/23 09/23/23 20:37 21:47 21:47 WBC 8.7 RBC 4.06 L Hgb 11.3 L Hct 35.2 L MCV 86.7 MCH 27.8 MCHC 32.1 RDW 12.9 Plt Count 422 MPV 10.1 Neut # (Auto) 5.8 Lymph # (Auto) 2.1 [place] # (Auto) 0.6 Eos # (Auto) 0.2 Baso # (Auto) 0.1 Absolute Nucleated RBC 0.00 Nucleated RBC % 0.0 Sodium 134 L Potassium 3.8 Chloride 102 Carbon Dioxide 26 Anion Gap 6.0 BUN 13 Creatinine 0.8 Estimated GFR (MDRD) 91 Glucose 123 H Calcium 9.3 Total Bilirubin 0.3 AST 12 ALT 18 Alkaline Phosphatase 59 Total Protein 7.7 Albumin 4.1 Globulin 3.6 Albumin/Globulin Ratio 1.1 Lipase 44 Urine Color LT RED Urine Clarity CLEAR Urine pH 6.0 Ur Specific [place] 1.020 Urine Protein 30 H Urine Glucose (UA) NEGATIVE Urine Ketones NEGATIVE Urine Occult Blood LARGE H Urine Nitrite NEGATIVE Urine Bilirubin NEGATIVE Urine Urobilinogen 0.2 (NORMAL) Ur Leukocyte Esterase TRACE H Urine RBC TNTC H Urine WBC 0-3 Ur Squamous Epith Cells FEW Squamous Urine Bacteria Rare Ur Microscopic Review INDICATED Urine Culture Comments INDICATED Urine HCG, Qual NEGATIVE Departure - Departure
--- NOTE | 2023-09-23 22:46 | ED Physician Documentation ---
PD HPI FEMALE - Stated complaint Stated Complaint: /BACK PX/VOMIT - Chief complaint Chief Complaint: Abd Pain - History obtained from History obtained from: Patient - Additional information Additional information: HPI from patient. 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 The procedure was a pyeloplasty and it was performed at [facility] September 15. At that time, a stent was placed. She had a Kramer catheter removed the following day. She has had scant hematuria since the procedure and pain with urinating, but during the day today, she has had significantly more severe pain with urinating, has developed urge to urinate but not correlating with when she has urine output, and significantly more blood in the urine today. She also has had nausea and vomiting today. She tried to contact the urologist but she says she was unable to get in touch with anyone because the office is closed until after New Year's. Denies fever. Review of Systems Constitutional: denies: Fever, Chills, Sweats Cardiac: reports: Reviewed and negative Respiratory: reports: Reviewed and negative GI: reports: Abdominal Pain (right flank), Nausea, Vomiting. 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 : None HEENT: None Psych: None Musculoskeletal: None Derm: None - Past Surgical History Past Surgical History: Yes - Present Medications Home Medications: Ambulatory Orders Medication Instructions Recorded Confirmed HYDROcod/ACETAM 5/325 [[place] 5/325] 1 - 2 ea PO Q6H PRN #14 tablet 05/03/23 09/24/23 Ondansetron Odt [Zofran] 4 mg TL Q6H PRN #10 tablet 08/08/23 09/24/23 levoFLOXacin [Levaquin] 500 mg PO QD #20 tablet 08/08/23 09/24/23 Phenazopyridine HCl [Pyridium] 200 mg PO TID PRN #20 tablet 09/24/23 levoFLOXacin [Levofloxacin] 500 mg PO DAILY #10 tablet 09/24/23 oxyBUTYnin chloride [Oxybutynin 5 mg PO TID #20 tab 09/24/23 Chloride] - Allergies Allergies/Adverse Reactions: Allergies Allergy/AdvReac Type Severity Reaction Status Date / Time No Known Drug Allergies Allergy Verified 09/23/23 20:12 - Social History Does the pt smoke?: No Smoking Status: Never smoker Does the pt drink ETOH?: No Does the pt have substance abuse?: No - Immunizations Immunizations are current?: Yes - POLST Patient has POLST: No PD ED PE NORMAL - Vitals Vital signs reviewed: Yes - General General: Alert and oriented X 3, No acute distress, Well developed/nourished - Cardiac Cardiac: RRR, No murmur - Respiratory Respiratory: No respiratory distress, Clear bilaterally - Abdomen Abdomen: Soft, Non distended, Other (mild TTP right abdomen; there are three incision sites right abdomen that are C/D/I with tissue adhesive in place; no swelling nor erythema) - Back Back: No CVA TTP - Derm Derm: Normal color, Warm and dry, No rash Results - Vitals Vitals: Vital Signs - 24 hr 09/24/23 03:00 Temperature 36.2 C L Heart Rate 68 Respiratory 13 Rate Blood Pressure 116/76 O2 Saturation 99 Oxygen O2 Source Room air - Labs Labs: Microbiology 09/23/23 20:37 Urine Culture - Preliminary Urine,Clean Catch CULTURE IN PROGRESS. RESULTS TO FOLLOW. Laboratory Tests 09/23/23 09/23/23 09/23/23 20:37 21:47 21:47 WBC 8.7 RBC 4.06 L Hgb 11.3 L Hct 35.2 L MCV 86.7 MCH 27.8 MCHC 32.1 RDW 12.9 Plt Count 422 MPV 10.1 Neut # (Auto) 5.8 Lymph # (Auto) 2.1 [place] # (Auto) 0.6 Eos # (Auto) 0.2 Baso # (Auto) 0.1 Absolute Nucleated RBC 0.00 Nucleated RBC % 0.0 Sodium 134 L Potassium 3.8 Chloride 102 Carbon Dioxide 26 Anion Gap 6.0 BUN 13 Creatinine 0.8 Estimated GFR (MDRD) 91 Glucose 123 H Calcium 9.3 Total Bilirubin 0.3 AST 12 ALT 18 Alkaline Phosphatase 59 Total Protein 7.7 Albumin 4.1 Globulin 3.6 Albumin/Globulin Ratio 1.1 Lipase 44 Urine Color LT RED Urine Clarity CLEAR Urine pH 6.0 Ur Specific [place] 1.020 Urine Protein 30 H Urine Glucose (UA) NEGATIVE Urine Ketones NEGATIVE Urine Occult Blood LARGE H Urine Nitrite NEGATIVE Urine Bilirubin NEGATIVE Urine Urobilinogen 0.2 (NORMAL) Ur Leukocyte Esterase TRACE H Urine RBC TNTC H Urine WBC 0-3 Ur Squamous Epith Cells FEW Squamous Urine Bacteria Rare Ur Microscopic Review INDICATED Urine Culture Comments INDICATED Urine HCG, Qual NEGATIVE - Rads (name of study) CT IVP Relevant Findings:: Prelim report reviewed, See rad report PD Medical Decision Making - ED course Complexity details: reviewed results, re-evaluated patient, considered different ial, d/w patient ED course: There are no concerning or diagnostic findings on the blood tests (normal CBC, ER abdominal panel). The urinalysis has too numerous to count RBC per high- powered field but no white blood cells and only rare bacteria. Urine hCG negative. I discussed this case with Dr. Donahue (on-call urology for [facility]); recommendation is to perform CT IVP. If there were no remarkable or diagnostic/concerning findings on this study, most likely explanation for her symptoms is stent colic which can be treated outpatient from a symptomatic standpoint (oxybutynin, tamsulosin, stool softeners, NSAIDs). CT IVP shows persistent R>L hydroureteronephrosis, stent in good position and contrast tracking through kidney down to bladder. At this time there is no ind ication of infection nor complication of her recent procedure. Results reviewed with patient. I provided prescriptions for oxybutinin and pyridium, instructed her to resume taking tamsulosin QD. Return precautions reviewed. Departure - Departure Disposition: 01 Home, Self Care Clinical Impression: Flank pain Condition: Good Instructions: ED Acute Pain [facility] Prescriptions: levoFLOXacin [Levofloxacin] 500 mg PO DAILY #10 tablet oxyBUTYnin chloride [Oxybutynin Chloride] 5 mg PO TID #20 tab Phenazopyridine HCl [Pyridium] 200 mg PO TID PRN #20 tablet PRN Reason: dysuria Comments: The CT scan does not show any ongoing obstruction; the contrast flowed freely from the right kidney down to your bladder. The cause of your flank pain is not apparent at this time. I spoke with the on-call urologist for [facility] (Dr. Donahue). He thinks it is likely that you are having what is called "stent colic"; this is when the urine reflux is up into the kidney through the stent when you urinate, causing episodes of pain similar to kidney stone pain. Irritation of the bladder from the stent would also explain your urge to urinate despite urine not coming out. Per his recommendation I have prescribed oxybutynin which helps with bladder spasm; hopefully this decreases your symptoms. I also have prescribed Pyridium, which sometimes helps with the sensation of urge to urinate when the bladder is not full. Dr. Donahue also recommends that you resume taking daily tamsulosin, and continue with a stool softener. I have electronically submitted the prescriptions to the [facility] pharmacy in [place]. Discharge Date/Time: 09/24/23 05:00
[2023-09-23] MEDS ORDERED: ONDANSETRON 4 MG/2 ML VIAL IVP STA (23:29)
[2023-09-24] MEDS ORDERED: iohexoL-300 100 ML VIAL IVP ONE (02:52)
[2023-09-24 03:26] VITALS: BP 116/76; O2SAT 99
[2023-09-24] MEDS ORDERED: PHENAZOPYRIDINE 100 MG TABLET PO STA (04:37)
--- NOTE | 2023-09-24 09:19 | ED Physician Documentation ---
ED Addendum - Addendum Addendum: 09/24/23 09:19 Over read from radiologist today feeling that she does have pyelonephritis. Her urinalysis was kind of unimpressive but did have trace leukocyte esterase. Given the finding though, we will prescribe antibiotics. I called and spoke with the patient and sent a prescription for levofloxacin 500 mg p.o. daily to [facility].
--- NOTE | 2023-09-24 09:19 | CT Report ---
PROCEDURE: IVP INDICATIONS: right flank pain, recent right procedure CONTRAST: 140 ML OMNI 300 TECHNIQUE: A [address] of the abdomen and pelvis was performed. Non-contrast and contrast images were recorded and evaluated at appropriate window settings. Images were recorded and evaluated at appropriate windo w settings. Reformats: coronal and sagittal. For radiation dose reduction, the following was used: au tomated exposure control, adjustment of convex left scoliosis. 3 interval casting with improved align ment at the tibia and fibula fractures. MA and/or kV according to patient size. COMPARISON: 05/03/2023 FINDINGS: Image quality: Diagnostic Lower chest: Lung bases are unremarkable. Liver: Unremarkable. No suspicious solid mass. Gallbladder and biliary system: Nondilated, unremarkable Pancreas: Unremarkable Spleen: Nonenlarged Adrenals: No discrete nodule Kidneys: There is a right ureteral stent. Positioning appears appropriate. Heterogeneous cortical attenuation on the right kidney in particular. No drainable abscess. Persisten t right moderate elbow caliectasis and mild left pelvocaliectasis. Overall ureters are nondilated. Ri ght lower pole nonobstructing small calculi are seen. Vessels and lymph nodes: The main portal vein is patent. No abdominal aortic aneurysm. No pathologic lymph nodes by size criteria. Bowel and peritoneum: No evidence of small bowel obstruction. No pathologic ascites or abscess. A sma ll amount pelvic free fluid is seen, probably physiologic for age. Body wall: Unremarkable Pelvis: Bladder is unremarkable. Vaginal ring device. Reproductive organs are not well evaluated on C T, grossly unremarkable. Bones: No acute or suspicious osseous finding. IMPRESSION: Persistent right greater than left pelvocaliectasis. Right ureteral stent in place. Nonobstructing ri ght lower pole stones are present. Compared to prior, there is new heterogeneous cortical attenuation in the right kidney, most commonly due to pyelonephritis. Multifocal small infarcts can also appear similar but this is felt to be less likely given provided clinical context. Other findings as above. Communicated with Dr. Beasley about this change to the preliminary report. Reviewed by: Abiodun Keith MD on 09/24/2023 9:18 AM PST Approved by: Abiodun Keith MD on 09/24/2023 9:18 AM PST Station ID: [id number]
== END 2023-09-24 05:00 | disposition home or self-care (01) ==
LOC: ED 20:01
DX: R10.9 Unspecified abdominal pain (principal); Z98.890 Other specified postprocedural states
CPT/HCPCS: 36415; 74178; 80053; 81001; 81025; 83690; 85025; 87086; 96374; 99284; A9270; Q9967; 81003

== ENCOUNTER 2023-10-02 08:11 | Outpatient (CLI) | payer OTHER | END 2023-10-02 23:59 | disposition critical access hospital (66) | LOC: EMS 08:11 | DX: R10.817 Generalized abdominal tenderness (principal); R11.2 Nausea with vomiting, unspecified | CPT/HCPCS: A0425; A0427 ==

== ENCOUNTER 2023-10-02 08:29 | Emergency (ER) | payer OTHER ==
--- NOTE | 2023-10-02 08:59 | ED Physician Documentation ---
History of Present Illness - Stated complaint Stated Complaint: ABD PX - Chief complaint Chief Complaint: Abd Pain - Additonal information Additional information: Patient 22-year-old female presenting to the emergency department with chief c omplaint abdominal pain with associated nausea vomiting. Sharee has been having intermittent nausea vomiting for several weeks. 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 Was subsequently seen here again September 23 and diagnosed with pyelonephritis. Sharee is continued to have intermittent episodes of nausea vomiting but has been tolerating her previously prescribed antibiotic. Culture reviewed from her previous ED visit showed less than thousand colony- forming units. This morning had increased nausea vomiting with epigastric abdominal pain. Received dose ondansetron from EMS prior to arrival. Review of Systems Constitutional: denies: Fever Eyes: denies: Loss of vision Ears: denies: Loss of hearing Nose: denies: Rhinorrhea / runny nose Throat: denies: Dental pain / toothache Cardiac: denies: Chest pain / pressure Respiratory: denies: Dyspnea GI: reports: Abdominal Pain, Nausea, Vomiting : reports: Hematuria. 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 : None HEENT: None Psych: None Musculoskeletal: None Derm: None - Past Surgical History Past Surgical History: Yes - Present Medications Home Medications: Ambulatory Orders Medication Instructions Recorded Confirmed HYDROcod/ACETAM 5/325 [[place] 5/325] 1 - 2 ea PO Q6H PRN #14 tablet 05/03/23 09/24/23 Ondansetron Odt [Zofran] 4 mg TL Q6H PRN #10 tablet 08/08/23 09/24/23 levoFLOXacin [Levaquin] 500 mg PO QD #20 tablet 08/08/23 09/24/23 Phenazopyridine HCl [Pyridium] 200 mg PO TID PRN #20 tablet 09/24/23 levoFLOXacin [Levofloxacin] 500 mg PO DAILY #10 tablet 09/24/23 oxyBUTYnin chloride [Oxybutynin 5 mg PO TID #20 tab 09/24/23 Chloride] EPINEPHrine [Epinephrine] 0.3 mg IJ ONCE PRN #1 each 10/02/23 Metoclopramide [Reglan] 10 mg PO Q6H PRN #20 tablet 10/02/23 - Allergies Allergies/Adverse Reactions: Allergies Allergy/AdvReac Type Severity Reaction Status Date / Time ondansetron Allergy Hives Verified 10/02/23 08:58 - Social History Does the pt smoke?: No Smoking Status: Never smoker Does the pt drink ETOH?: No Does the pt have substance abuse?: No - Immunizations Immunizations are current?: Yes - POLST Patient has POLST: No PD ED PE NORMAL - Vitals Vital signs reviewed: Yes - General General: Alert and oriented X 3, No acute distress, Well developed/nourished, Other - HEENT HEENT: Atraumatic, PERRL, EOMI, Ears normal, Moist mucous membranes, Pharynx benign, Dentition benign - Neck Neck: Supple, no meningeal sign, No bony TTP, No adenopathy, Thyroid normal, No JVD - Cardiac Cardiac: RRR, No gallop, No rub, Strong equal pulses - Respiratory Respiratory: No respiratory distress, Clear bilaterally - Abdomen Abdomen: Normal bowel sounds, Soft, Non tender, Non distended, No organomegaly - Female Female : Deferred - Rectal Rectal: Deferred - Back Back: No CVA TTP, No spinal TTP - Derm Derm: Normal color, Other (Diffuse urticarial rash). 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, No motor deficit, Normal speech - Psych Psych: Normal mood Results - Vitals Vitals: Vital Signs - 24 hr 10/02/23 10/02/23 10/02/23 08:34 08:38 09:27 Temperature 36.8 C 36.8 C Heart Rate 84 97 116 H Respiratory 22 18 18 Rate Blood Pressure 105/79 105/89 H 118/84 H O2 Saturation 96 100 93 If not protocol 2 : Oxygen Flow, liters/minute 10/02/23 10:34 Temperature Heart Rate 103 H Respiratory 16 Rate Blood Pressure 103/54 L O2 Saturation 98 If not protocol 2 : Oxygen Flow, liters/minute Oxygen O2 Source Nasal cannula Oxygen Flow Rate 2 - Labs Labs: Laboratory Tests 10/02/23 10/02/23 10/02/23 09:19 09:19 10:53 WBC 8.5 RBC 5.18 Hgb 14.5 Hct 44.5 MCV 85.9 MCH 28.0 MCHC 32.6 RDW 12.9 Plt Count 497 H MPV 10.3 Neut # (Auto) 6.1 Lymph # (Auto) 2.0 [place] # (Auto) 0.3 Eos # (Auto) 0.0 Baso # (Auto) 0.0 Absolute Nucleated RBC 0.00 Nucleated RBC % 0.0 Sodium 137 Potassium 3.8 Chloride 104 Carbon Dioxide 23 Anion Gap 10.0 BUN 13 Creatinine 0.7 Estimated GFR (MDRD) 107 Glucose 111 H Calcium 9.6 Total Bilirubin 0.5 AST 16 ALT 11 Alkaline Phosphatase 58 Total Protein 7.9 Albumin 4.3 Globulin 3.6 Albumin/Globulin Ratio 1.2 Lipase 34 Urine Color DK. ORANGE Urine Clarity CLEAR Urine pH 6.5 Ur Specific [place] 1.020 Urine Protein Urine Glucose (UA) Urine Ketones TRACE Urine Occult Blood Urine Nitrite Urine Bilirubin NEGATIVE Urine Urobilinogen Ur Leukocyte Esterase Urine RBC 11-25 H Urine WBC 0-3 Ur Squamous Epith Cells MOD Squamous H Urine Bacteria Few Ur Microscopic Review INDICATED Urine Culture Comments NOT INDICATED Urine HCG, Qual NEGATIVE PD Medical Decision Making - ED course Complexity details: reviewed old records, reviewed results, re-evaluated patient, considered differential, d/w patient ED course: Patient 22-year-old female presenting to the emergency department with abdominal pain with associated nausea vomiting. Recently underwent ureteral stent placement for a congenital obstruction to her right ureter. Was subsequently seen here and diagnosed with pyelonephritis and started on oral antibiotics. She returns to the emergency department with nausea vomiting and epigastric abdominal pain that has been worse x 1 day. Prior to arrival she received a dose of ondansetron. Shortly after arrival within a few minutes she began to develop a diffuse urticarial rash as well as some difficulty with breathing. Her clinical presentation was consistent with acute anaphylaxis. She was ultimately given 2 doses of 0.3 IM epinephrine as well as dose Decadron, Benadryl. Additionally she was given medication for pain control and Reglan which she seemed to tolerate well for control of her nausea. She was monitored carefully in the emergency department for several hours with no persistent signs of anaphylaxis or new or worsening symptoms. Her lab work here in the emergency department is reassuring. Her urine studies were limited secondary to large blood however there are no clear indications of infection. CT of her abdomen pelvis was obtained which demonstrated stable positioning of her recently placed stent as well as improvement of previous areas of attenuation that were concerning for possible pyelonephritis. On reevaluation she was found to be resting comfortably. She was able to tolerate a p.o. trial here in the emergency department. I will discharge her with a short course of Reglan and and encouraged her to follow-up with her urologist. Encouraged return to the emergency department as needed. Additionally she be discharged with EpiPen for any further anaphylactic reactions. Departure - Departure Disposition: Home, Self Care Clinical Impression: Abdominal pain Qualifiers: Abdominal location: epigastric Qualified Code(s): R10.13 - Epigastric pain Nausea and vomiting Qualifiers: Vomiting type: unspecified Qualified Code(s): R11.2 - Nausea with vomiting, unspecified Anaphylactic reaction Qualifiers: Encounter type: initial encounter Qualified Code(s): T78.2XXA - Anaphylactic shock, unspecified, initial encounter Prescriptions: EPINEPHrine [Epinephrine] 0.3 mg IJ ONCE PRN #1 each PRN Reason: Anaphylaxis Metoclopramide [Reglan] 10 mg PO Q6H PRN #20 tablet PRN Reason: Nausea / Vomiting Comments: Thank you for allowing us to care for you today [facility]. Today in the emergency department you were evaluated for any possible dangerous or life-threatening medical condition. In the emergency department today you develop symptoms that are concerning for anaphylactic reaction, likely to the ondansetron also known as Zofran that you received prior to arrival. This medication has been added to your list of allergies and it is important that you communicate this allergy to your primary care doctor and to all future healthcare professionals with whom you come into contact. I have written a prescription for an EpiPen that you can have at home in case you have symptoms of severe allergic reaction such as shortness of breath, wheezing, lightheadedness. Please use this as directed. The remainder of your tests in the emergency department today including your blood work and CT of your abdomen and pelvis are reassuring.Your stent is in place and unchanged from previous and there is no longer any signs of infection involving your kidneys. I have also written a prescription for Reglan which you can take at home with ongoing nausea. Please work towards staying well-hydrated over the course the next few days with continue with small sips of healthy fluids such as Gatorade, Pedialyte or not artificially sweetened fruit juices. Please follow-up with your primary care doctor as well as with your urologist as soon as possible concerning your ER visit. If it anytime you have new or worsening symptoms please not hesitate to return. Forms: PCP List
[2023-10-02] MEDS ORDERED: METOCLOPRAMIDE 10 MG/2 ML VIAL IVP STA (09:05)
[2023-10-02] MEDS ORDERED: SODIUM CHLORIDE 0.9% 1,000 ML IV STA (09:05)
[2023-10-02] MEDS ORDERED: diphenhydrAMINE INJ 50 MG/ML VIAL IVP STA (09:05)
[2023-10-02] MEDS ORDERED: MORPHINE 2 MG/ML CARPUJECT IVP STA (09:05)
[2023-10-02] MEDS ORDERED: EPINEPHrine 1 MG/ML AMP IM STA (09:08)
[2023-10-02 09:25] LABS: BASOPHILS % (AUTO) 0.2 %; EOSINOPHILS % (AUTO) 0.4 %; HCT - HEMATOCRIT 44.5 % (37.0-47.0); HGB - HEMOGLOBIN 14.5 g/dL (12.0-16.0); LYMPHOCYTES % (AUTO) 23.2 %; MEAN CORPUSCULAR HGB CONC 32.6 g/dL (32.0-36.0); MEAN CORPUSCULAR VOLUME 85.9 fL (81.0-99.0); MEAN PLATELET VOLUME 10.3 fL (7.9-10.8); MONOCYTES # (AUTO) 0.3 10^3/uL (0.0-1.0); NEUTROPHILS # (AUTO) 6.1 10^3/uL (1.5-6.6); PLT - PLATELET COUNT 497 10^3/uL (130-450); RED BLOOD COUNT 5.18 10^6/uL (4.20-5.40); RED CELL DISTRIBUTION WIDTH 12.9 % (12.0-15.0); WHITE BLOOD COUNT 8.5 x10^3/uL (4.8-10.8)
[2023-10-02] MEDS ORDERED: DEXAMETHASONE 10 MG/ML VIAL IVP STA (09:27)
[2023-10-02 09:38] LABS: ALBUMIN 4.3 g/dL (3.2-5.5); ALBUMIN/GLOBULIN RATIO 1.2 (1.0-2.2); BILIRUBIN,TOTAL 0.5 mg/dL (0.2-1.0); CALCIUM 9.6 mg/dL (8.5-10.3); CREATININE 0.7 mg/dL (0.6-1.3); POTASSIUM 3.8 mmol/L (3.5-4.5); TOTAL PROTEIN 7.9 g/dL (6.4-8.9)
[2023-10-02 10:44] VITALS: BP 103/54; O2SAT 98
[2023-10-02 11:01] LABS: BILIRUBIN,URINE NEGATIVE (NEGATIVE); KETONES,URINE (UA) TRACE mg/dL (NEGATIVE); PH,URINE 6.5 PH (5.0-7.5)
[2023-10-02 11:02] LABS: CLARITY,URINE CLEAR (CLEAR); HCG UR QUAL NEGATIVE
[2023-10-02 11:08] LABS: WBC,URINE 0-3 /HPF (0-5)
[2023-10-02 11:09] LABS: BACTERIA,URINE Few /HPF (None Seen); SQUAMOUS EPITHELIAL CELL,UR MOD Squamous (<= Few)
[2023-10-02] MEDS ORDERED: iohexoL-300 100 ML VIAL IVP ONE (12:42)
--- NOTE | 2023-10-02 13:13 | CT Report ---
PROCEDURE: Abdomen/Pelvis W INDICATIONS: abd pain CONTRAST: 100ml omni 300 TECHNIQUE: After the administration of intravenous contrast, a CT scan of the abdomen and pelvis was performed. Images were recorded and evaluated at appropriate window settings. Reformats: coronal and sagittal. F or radiation dose reduction, the following was used: automated exposure control, adjustment of mA and /or kV according to patient size. COMPARISON: CT IVP 09/24/2023 FINDINGS: Image quality: Excellent. Lung bases and heart: Unremarkable. Liver: No solid mass. Gallbladder and biliary tree: No radiopaque stones or wall thickening. No biliary dilation. Spleen: No splenomegaly. Pancreas: No pancreatic ductal dilation. Adrenals: No adrenal nodule. Kidneys and ureters: Persistent mild right greater than left pelvocaliectasis, similar appearance to prior. Right ureteral stent is in place. Nonobstructing right lower pole stones are stable compared t o prior. The kidneys enhance symmetrically. Bowel and peritoneum: No bowel distension. Small pelvic free fluid. Lymph nodes: No central or retroperitoneal adenopathy. Vessels: No infrarenal aortic aneurysm. PELVIS Reproductive organs: Unremarkable. Bladder: No abnormal wall thickening, accounting for underdistention. Pelvic lymph nodes: No pelvic adenopathy by size criteria. Bones: No aggressive osseous abnormality. Other: No significant ventral or inguinal hernia. IMPRESSION: 1.Stable right greater than left pelvocaliectasis. Right ureteral stent in place. Nonobstructing righ t lower pole stones are redemonstrated. 2.Resolution of heterogeneous enhancement right kidney. The kidneys enhance symmetrically. 3.No new acute findings within the abdomen or pelvis. Reviewed by: Baldo Carolina MD on 10/02/2023 1:12 PM PST Approved by: Baldo Carolina MD on 10/02/2023 1:12 PM PST Station ID: [id number]
== END 2023-10-02 14:05 | disposition home or self-care (01) ==
LOC: EDUNIT# → ED 08:29
DX: T78.2XXA Anaphylactic shock, unspecified, initial encounter (principal); R11.2 Nausea with vomiting, unspecified; R10.13 Epigastric pain
CPT/HCPCS: 36415; 74177; 80053; 81001; 81025; 83690; 85025; 96372; 96374; 96375; 99283; 99284; J1200; J2765; 81003; 87086

== ENCOUNTER → 2024-02-23 14:58 | Outpatient (CLI) | payer OTHER | END | disposition home or self-care (01) | LOC: LAB.N 14:58 | PROVIDERS: ATTEND Physician Assistant | DX: N91.2 Amenorrhea, unspecified (principal) | CPT/HCPCS: 36415; 84702 ==